=== PATIENT | male | born 1975 | race Caucasian/White ===

== ENCOUNTER 2018-04-02 07:28 | Outpatient (CLI) | payer OTHER ==
--- NOTE | 2018-04-02 10:07 | RAD ---
BARIUM SWALLOW ESOPHAGRAM: HISTORY: Dysphagia. COMPARISON: None. EXPOSURE: 54.4 mGy FLUOROSCOPY TIME: 1.8 minutes FINDINGS: [employer]ING AND [employer] CHEST RADIOGRAPH: Normal cardiac silhouette. The lungs and pleural spaces are clear. No pneu mothorax or osseous abnormality. BARIUM SWALLOW: The patient was administered thick and thin barium. There was no evidence of strict ure. There was no delay in passage of the contrast. No evidence of an intraluminal mass. The visua lized thoracic esophageal mucosa has a normal appearance. No evidence of reflux during fluoroscopy. The patient was administered a standard 13 mm barium tablet, which passed without difficulty. IMPRESSION: Unremarkable cervical and thoracic esophagram. No significant stenosis or stricture. POS: [facility]
== END 2018-04-02 07:29 | disposition home or self-care (01) ==
LOC: RAD 07:28
PROVIDERS: ATTEND Internal Medicine
DX: R13.10 Dysphagia, unspecified (principal)
CPT/HCPCS: 74220